=== PATIENT | male | born 1985 | race Caucasian/White ===

== ENCOUNTER 2018-03-10 05:42 | Emergency (ER) | payer OTHER ==
[~2018-03-10] VITALS: Ht 177.8 cm; Wt 70.0 kg
[2018-03-10] MEDS ORDERED: KETOROLAC 30 MG/1 ML IM ONE (07:00)
[2018-03-10] MEDS ORDERED: KETOROLAC 30 MG/1 ML ONE (07:00)
[2018-03-10] MEDS ORDERED: AMPH30TA2 PO (07:12)
[2018-03-10] MEDS ORDERED: GABA300C10 PO (07:12)
[2018-03-10] MEDS ORDERED: HYDROcodone/APAP 5/325 TABLET PO ONE (07:30)
[2018-03-10 07:51] VITALS: BP 119/74
[2018-03-10] MEDS ORDERED: HYDROcodone/APAP 5/325 TABLET ONE (07:55)
== END 2018-03-10 08:18 | disposition home or self-care (01) ==
LOC: ED 07:29
DX: S02.652A Fracture of angle of left mandible, initial encounter for closed fracture (principal); R51 Headache; Z88.0 Allergy status to penicillin; Y04.8XXA Assault by other bodily force, initial encounter; Y93.89 Activity, other specified; Y92.89 Other specified places as the place of occurrence of the external cause; Y99.8 Other external cause status
CPT/HCPCS: 70486; 96372; 99284; J1885